=== PATIENT | male | born 1965 | race Caucasian/White ===

== ENCOUNTER 2020-09-20 14:18 | Inpatient (IN) ==
[2020-09-20] MEDS ORDERED: NORMAL SALINE 1,000 ML IV ONE ×2 (16:20→18:34)
--- NOTE | 2020-09-20 16:29 | ERNOTE ---
Back Pain ER HPI Date of Service: 09/20/20 Presenting Symptoms: other - Product diarrhea acute confusional state Time Seen by Provider: 09/20/20 16:08 Source: patient, family Immunizations: IMMUNIZATION HX History of Influenza Vaccine More Information Required Hx Pneumococcal Vaccination More Information Required Allergies/Adverse Reactions: Allergies No Known Allergies Allergy (Verified 09/20/20 15:55) Home Medications: HOME MEDICATIONS Acetaminophen [Tylenol] 1,000 mg PO PRN PRN 07/29/20 [Last Taken Unknown] Lactobacillus rhamnosus GG 10 billion cell capsule 1 cap PO BID 09/20/20 [Last Taken Unknown] cholecalciferol (vitamin D3) 50 mcg (2,000 unit) tablet 2,000 unit PO DAILY 09/20/20 [Last Taken Unknown] diphenoxylate-atropine 2.5 mg-0.025 mg tablet 1 tab PO TID PRN 09/20/20 [Last Taken Unknown] folic acid 1 mg tablet 1 mg PO DAILY 09/20/20 [Last Taken Unknown] pantoprazole 40 mg tablet,delayed release 40 mg PO QAM 09/20/20 [Last Taken Unknown] thiamine HCl (vitamin B1) 100 mg tablet 100 mg PO DAILY 09/20/20 [Last Taken Unknown] Narrative: 55-year-old male emergency room by his father who is here visiting from [place] apparently Deep was at [facility] for 5 weeks for unknown cause was released on September 03 father states since that time so has been going downhill being confused and having chronic diarrhea he is vomited once or twice in the last several weeks Christian that seem to realize what he is doing or where he has had any more and according to his father he was fully functional up until September 03 he also states that his son's appetite has decreased significantly and he has been losing weight Patient had similar situation beginning of the summer was noted his history. that he has a neurostimulator in his spine Before being transferred to [facility] patient had a CAT scan. Emergency room, CAT scan of the brain was unremarkable at the time he had good appetite no abdominal pain no nausea vomiting diarrhea good no abdominal pain nausea vomiting or diarrhea pancreatic pick patient still appears confused Date (Duration): 09/03/20 Time (Timing): 16:25 Timing: Reports: constant Quality/Severity: Reports: moderate Location of pain: Reports: other - Radiates to the upper abdomen Activities at Onset: Reports: none Recent Injury?: Reports: no Modifying Factors - (Improves): Reports: nothing Modifying Factors - (Worsens): Reports: nothing Associated Symptoms: Reports: fever/chills Prior Treament: Reports: recently seen Review of Systems - Review of Systems Constitutional: Present: recent illness - Least 6 weeks ago EYE: Present: no symptoms reported ENT: Present: no symptoms reported Respiratory: Present: no symptoms reported Cardiology: Present: no symptoms reported Gastrointestinal/Abdominal: Present: vomiting, diarrhea, eating less, drinking less Genitourinary: Present: See HPI Musculoskeletal: Present: back pain, neck pain Skin: Present: no symptoms reported Neurological: Present: no symptoms reported Endocrine: Present: no symptoms reported Psych: Present: no symptoms reported Medical History (Last Reviewed 09/20/20 @ 16:27 by John Elizabeth MD) Back pain Chronic pain History of alcohol abuse Hypertension Insomnia Pneumonia Surgical History: Surgical History (Last Reviewed 09/20/20 @ 16:27 by John Elizabeth MD) H/O thumb surgery Previous back surgery Family History: Family History (Last Reviewed 09/20/20 @ 15:55 by Jeniffer Samuels RN) Mother Alive and well Father Alive and well Sister Alive and well Other No pertinent family history Social History: (Last Reviewed 09/20/20 @ 15:55 by Jeniffer Samuels RN) Social History: Marital status: number of children: 1 caregiver/support person: Yes 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/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, 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 parent marital status: unknown current occupational status: unemployed Highest level of school completed/degree received: 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 Service: No Tobacco: Smoking Status: Former smoker Alcohol: alcohol intake: former Substance Use: substance use type: former substance user Dietary Habits: caffeine: Yes Physical Exam - Physical Exam General Appearance: Present: wd/wn, alert, no apparent distress, moderate distress Eye Exam: Normal inspection: bilateral - Eyes sunken, PERRL: bilateral, EOMI: bilateral Ears, Nose, Throat: Present: dry mucous membranes Neck: Present: normal inspection Respiratory: Present: no respiratory distress Cardiovascular/Chest: Present: regular rate, rhythm Gastrointestinal/Abdominal: Present: normal bowel sounds Back Exam: Present: normal inspection Extremity Exam: Present: normal inspection Neurological Exam: Present: alert Progress - Results and Orders Patient's Lab Results:: I have reviewed the patient's lab results. Results and Orders: [id number] [address] NAME: Herman Adame : 1965 MR #: [id number] CC: LOC: ER ADM DATE: DIS DATE: X-RAY REPORT ~[id number] CT/CT Abdomen/Pelvis W/C *~ Exam Date: 09/20/2020 18:02 Ordering Physician: John Elizabeth MD History: Infection. Back pain. Hypertension. Chronic diarrhea. Weakness. Elevated white blood cell count. Technique: Multislice helical acquisition from the lung bases through the ischial tuberosities performed with IV contrast enhancement. Axial and coronal reconstruction images performed. Oral bowel contrast was utilized for the exam. Individualized dose optimization technique was used for the performed procedure including automated exposure control, adjustment of the MA and or KV according to patient size and/or use of iterative reconstruction technique. Comparison: 07/29/2020 Findings: Liver is enlarged measuring 18 cm. Gallbladder appears within normal limits. Adrenal glands appear within normal orbits. There is some atrophy of the pancreas. Spleen appears within normal limits. There are small bilateral pleural effusions right greater than left. There are degenerative changes and postoperative changes to the lumbar spine. There are atherosclerotic calcifications. Kidneys appear within normal limits. Exam shows bowel wall thickening and pericolonic fat stranding involving both the ascending and descending colons and the sigmoid colon. This would be compatible with diffuse colitis and something like ulcerative colitis must be considered. Infectious colitis would also be considered. Would recommend surgical or GI consult for further evaluation. Colonoscopy should be considered. There is no bowel obstruction or free air. IMPRESSION: DIFFUSE NONSPECIFIC COLITIS DISCUSSED. OTHER FINDINGS DISCUSSED Electronically signed by Ricky Saldana M.D.. Ricky Saldana MD Dict: 09/20/20 182 Typed: 09/20/20 1823/ Laboratory Tests 09/20/20 09/20/20 16:34 17:54 Albumin 2.0 L Amylase 7 L Lipase 27 L Laboratory Tests 09/20/20 18:04 SARS-CoV-2 (PCR) Not detected - Vital Signs Patient's Vital Signs:: I have reviewed the patient's vital signs. Vital Signs: Vital Signs 09/20/20 14:34 09/20/20 15:58 Temperature 36.3 C Pulse Rate 142 H 131 H Respiratory Rate 20 19 Blood Pressure 127/92 H 131/95 H O2 Sat by Pulse Oximetry 96 98 Elevated blood pressure and heart temperature within normal - EKG EKG #1 EKG: supraventricular tachycardia EKG read: Interp. by me EKG Comments: EKG sinus tachycardia rate of 131 - CT/Ultrasound CT/Ultrasound Narrative: NAME: Herman Adame : 1965 MR #: [id number] CC: LOC: ER ADM DATE: DIS DATE: X-RAY REPORT ~[id number] CT/CT Chest W/C~ Exam Date: 09/20/2020 18:02 Ordering Physician: John Elizabeth MD History: Infection. Back pain. Hypertension. Chronic diarrhea. Weakness. Elevated white blood cell count. Technique: Multislice helical acquisition from a level above the thoracic inlet through the lung bases to the adrenal glands performed with IV contrast enhancement. Axial and coronal reformatted images performed. Individualized dose optimization technique was used for the performed procedure including automated exposure control, adjustment of the MA and or KV according to patient size and/or use of iterative reconstruction technique. Comparison: 07/29/2020 Findings: There is contrast material within the esophagus. There is a hiatal hernia. There is no significant, by size criteria, mediastinal or hilar lymphadenopathy. There is no pericardial effusion. There are small pleural effusions right greater than left. There is associated compressive atelectasis. There is some dependent atelectasis as well. I see no other significant airspace disease. There are degenerative changes in the thoracic spine. There are neurostimulator devices in the thoracic spine. IMPRESSION: SMALL BILATERAL PLEURAL EFFUSIONS RIGHT GREATER THAN LEFT WITH ASSOCIATED COMPRESSIVE ATELECTASIS. HIATAL HERNIA WITH CONTRAST MATERIAL WITHIN THE ESOPHAGUS. Electronically signed by Ricky Saldana M.D.. Ricky Saldana MD Dict: 09/20/201819 Typed: 09/20/201819/ 09/20/201822 - Progress/Reassessment Chief Complaint: Back Pain Progress:: Improved Plan - Plan Plan: Patient has been diagnosed with colitis intestinal colitis presented her case to Dr. Mesa who is excepted to admit patient pending his Covid status Departure Clinical Impression: Colitis, infectious, Hypokalemia due to excessive gastrointestinal loss of potassium, Chronic diarrhea, Schizophrenia - Departure Disposition: Short Term Hospital Inpatient Condition: Stable
[2020-09-20] MEDS ORDERED: DIATRIZOATE MEGLUMINE, SODIUM 30 ML BTL ONE (16:31)
[2020-09-20] MEDS ORDERED: DIATRIZOATE MEGLUMINE, SODIUM 30 ML BTL PO ONE (16:31)
[2020-09-20 16:44] LABS: Hematocrit 44.6 % (42.0-52.0); Mean Cell Volume 89.4 fl (78-100); Mean Corpuscular Hemoglobin 30.1 pg (27-31); Mean Corpuscular Hgb Conc 33.6 g/dl (32-36); Mean Platelet Volume 8.4 fl (8-11.3); Platelet Count 496 K/mm3 (150-450); Red Blood Count 4.99 M/mm3 (4.7-6.0); Red Cell Distribution Width 14.2 % (11.5-14.0); White Blood Count 34.9 K/mm3 (4.0-10.5)
[2020-09-20 16:46] LABS: Total Cells Counted 100
[2020-09-20 16:57] LABS: Atypical (Reactive) Lymph 5 % (0-2); Band 9 % (0-2.0); Lymphocyte 1 % (20-51); Monocyte 7 % (0-9); Neutrophil 78 % (42-75); Neutrophil # 27.2 K/mm3 (1.3-6.0)
[2020-09-20 16:58] LABS: Platelet Estimate Increased (NORMAL)
[2020-09-20 17:02] LABS: BUN/Creatinine Ratio 7.6 (9.0-21.6); Blood Urea Nitrogen 10 mg/dL (6-23); Glucose * 198 mg/dL (70-110); Sodium 133 mmol/L (132-142)
[2020-09-20 17:03] LABS: ALT 16 U/L (19-67); AST 12 U/L (0-48); Alkaline Phosphatase * 76 U/L (50-170); Anion Gap 11.5 mmol/L (6.8-13.8); BNP * 193 pg/mL (5-140); Bilirubin, Total 0.7 mg/dL (0.0-1.1); Ca. Corrected For Albumin 9.3 mg/dL (8.4-10.2); Carbon Dioxide 28.1 mmol/L (24-32.6); Chloride 96 mmol/L (97-106); Lipase 27 U/L (73-393); Potassium 2.6 mmol/L (3.4-4.6); Total Protein 5.1 gm/dL (6.2-8.2); Troponin I Less than 0.017 ng/mL (0.00-0.10)
[2020-09-20 18:04] LABS: Amylase * 7 U/L (25-115); Lipase 27 U/L (73-393)
[2020-09-20] MEDS: POTASSIUM CHLORIDE IN WATER 100 ML IV SCH ×4 (18:25→21:40)
[2020-09-20] MEDS ORDERED: metroNIDAZOLE/SODIUM CHLORIDE 500 MG/100 ML BAG IV ONE (18:40)
[2020-09-20] MEDS ORDERED: LEVOFLOXACIN IN DEXTROSE 5 % 500 MG/100 ML BAG IV SCH (18:45)
[2020-09-20] MEDS: POTASSIUM CHLORIDE 20 MEQ in NORMAL SALINE 1,000 ML IV SCH (22:44)
[2020-09-21 03:19] LABS: Urine Bilirubin Negative (NEGATIVE); Urine Blood Negative /ul (NEGATIVE); Urine Ketone 5 mg/dL (NEGATIVE); Urine Nitrite Negative (NEGATIVE); Urine Protein Negative (NEGATIVE); Urine Specific Gravity 1.015 SP.GR. (1.005-1.030); Urine Urobilinogen Normal (NORMAL); Urine pH 6.5 pH (5.0-7.0)
[2020-09-21 03:30] LABS: Urine Appearance Clear (CLEAR); Urine Bacteria None Seen; Urine Color Dark Yellow; Urine RBC None Seen /hpf (0-5); Urine WBC 0-5 /hpf (0-5)
[2020-09-21 03:36] LABS: Cocaine Ur Negative (NEGATIVE); Urine Barbiturate Negative (NEGATIVE); Urine Benzodiazepines Negative (NEGATIVE); Urine PCP Negative (NEGATIVE); Urine THC Negative (NEGATIVE)
[2020-09-21 03:44] LABS: Urine Opiates Positive (NEGATIVE)
[2020-09-21 06:43] LABS: Hematocrit 35.8 % (42.0-52.0); Hemoglobin 12.1 gm/dL (13.5-18.0); Mean Cell Volume 88.8 fl (78-100); Mean Corpuscular Hgb Conc 33.8 g/dl (32-36); Mean Platelet Volume 8.6 fl (8-11.3); Platelet Count 352 K/mm3 (150-450); Red Blood Count 4.03 M/mm3 (4.7-6.0); Red Cell Distribution Width 13.8 % (11.5-14.0)
[2020-09-21 06:49] LABS: Total Cells Counted 100
[2020-09-21 06:51] LABS: Bacteria Few; Lymphocyte 10 % (20-51); Neutrophil 90 % (42-75); White Blood Count Many; Yeast None Seen
[2020-09-21 06:59] LABS: Albumin * 1.6 gm/dl (3.4-5.0); Anion Gap 10.6 mmol/L (6.8-13.8); BUN/Creatinine Ratio 8.2 (9.0-21.6); Bilirubin, Total 0.5 mg/dL (0.0-1.1); Ca. Corrected For Albumin 8.8 mg/dL (8.4-10.2); Calcium * 7.2 mg/dL (7.9-10.9); Carbon Dioxide 24.1 mmol/L (24-32.6); Potassium 2.7 mmol/L (3.4-4.6); Total Protein 3.8 gm/dL (6.2-8.2)
[2020-09-21 07:07] LABS: CRP 23.3 mg/dL (0.0-0.9)
[2020-09-21] MEDS: POTASSIUM CHLORIDE 20 MEQ in NORMAL SALINE 1,000 ML IV SCH ×2 (07:09→15:11)
[2020-09-21 07:33] LABS: Atypical (Reactive) Lymph 3 % (0-2); Band 7 % (0-2.0); Lymphocyte 5 % (20-51); Monocyte 2 % (0-9); Neutrophil 83 % (42-75); Neutrophil # 23.2 K/mm3 (1.3-6.0); Platelet Estimate Normal (NORMAL); RBC Morphology Normal (NORMAL)
--- NOTE | 2020-09-21 08:01 | HP ---
Chief Complaint - Chief Complaint Date of Service: 09/21/20 Time of Service: 07:49 Chief Complaint: Weakness, diarrhea History of Present Illness: Herman Adame is a 55-year-old male who presented to the emergency room with intractable diarrhea and weakness. He was discovered to have a low potassium at 2.6. He was having some abdominal discomfort. Apparently he has a history of pancreatitis but his amylase and lipase were both normal here. He was started on Flagyl and Levaquin in the emergency room. His C. difficile screen has come back positive. He received several bags of K rider and I placed him on normal saline with 20 of potassium in his IV at 125 cc/h through the night. His potassium this morning is only 2.7. He appears well-hydrated. His kidney studies are normal now. His platelets were elevated on admission but are normal today. His white count was markedly elevated 35,000 on admission and is 28,000 this morning with a predominance of leukocytes. Stool is positive for leukocytes most of which are neutrophils. CT of the abdomen shows diffuse nonspecific colitis findings. In this case it is almost certainly from an infectious etiology. He had been at [facility] in [place] for an extended period for treatment of his schizophrenia and probably had antibiotics during that time causing the C. difficile overgrowth. The rest of his electrolytes appear normal this morning. His kidney function is normal with EGFR of 85. His liver function studies are normal. He is low in protein and albumin. Medical History (Last Reviewed 09/20/20 @ 20:58 by Tammie Corona RN) Back pain Chronic pain History of alcohol abuse Hypertension Insomnia Pneumonia Surgical History: Surgical History (Last Reviewed 09/20/20 @ 20:58 by Tammie Corona RN) H/O thumb surgery Previous back surgery Family History: Family History (Last Reviewed 09/20/20 @ 20:58 by Tammie Corona RN) Mother Alive and well Father Alive and well Sister Alive and well Other No pertinent family history Social History: (Last Reviewed 09/20/20 @ 20:58 by Tammie Corona RN) Social History: Marital status: number of children: 1 caregiver/support person: Yes caregiver/support person comment: Filter [employer] Hel[employer], friends parent marital status: unknown current occupational status: unemployed Highest level of school completed/degree received: 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 Service: No Tobacco: Smoking Status: Former smoker Alcohol: alcohol intake: former Substance Use: substance use type: former substance user Dietary Habits: caffeine: Yes Review Of Systems (GEN) - Review of Systems Generalized/Overall Review: Present: Weakness, Malaise EENTM: Present: No Symptoms Reported Respiratory: Present: No Symptoms Reported Cardiac: Present: No Symptoms Reported Abdominal: Present: Abdominal Pain, Diarrhea - C. difficile screen is positive Genitourinary: Present: No Symptoms Reported Musculoskeletal: Present: No Symptoms Reported Neurological: Present: No Symptoms Reported Skin: Present: No Symptoms Reported Endocrine: Present: No Symptoms Reported Immunizations: IMMUNIZATION HX History of Influenza Vaccine More Information Required Hx Pneumococcal Vaccination More Information Required Allergies/Adverse Reactions: Allergies Allergy/AdvReac Type Severity Reaction Status Date / Time No Known Allergies Allergy Verified 09/20/20 15:55 Home Medications: HOME MEDICATIONS Acetaminophen [Tylenol] 1,000 mg PO PRN PRN 07/29/20 [Last Taken Unknown] Acetaminophen [Tylenol] 1,000 mg PO Q6H PRN 09/20/20 [Last Taken Unknown] Amlodipine Besylate 2.5 mg PO DAILY 09/20/20 [Last Taken 09/20/20] Cholecalciferol [Vitamin D] 2,000 unit PO DAILY 09/20/20 [Last Taken 09/20/20] Doxepin HCl [Sinequan] 10 mg PO HS 09/20/20 [Last Taken 09/19/20] Lactobacillus rhamnosus GG 10 billion cell capsule 1 cap PO BID 09/20/20 [Last Taken Unknown] Lisinopril [Zestril] 40 mg PO DAILY 09/20/20 [Last Taken 09/20/20] Metoprolol Succinate 50 mg PO DAILY 09/20/20 [Last Taken 09/20/20] Cuvdt-Zzghrfb-Gaavhynt Tablet 1 cap PO DAILY 09/20/20 [Last Taken 09/20/20] folic acid 1 mg tablet 1 mg PO DAILY 09/20/20 [Last Taken 09/20/20] pantoprazole 40 mg tablet,delayed release 40 mg PO QAM 09/20/20 [Last Taken 09/20/20] thiamine HCl (vitamin B1) 100 mg tablet 100 mg PO DAILY 09/20/20 [Last Taken 09/20/20] Exam - Exam Vital Signs: Vital Signs - Last Taken Temp 37.3 C 09/21/20 06:00 Pulse 133 H 09/21/20 06:00 Resp 16 09/21/20 06:00 BP 134/81 09/21/20 06:00 Pulse Ox 97 09/21/20 06:00 Constitutional: Present: Alert, Oriented x3, Cooperative, Well developed, Well nourished, No distress ENT Exam: Present: normal ENT inspection, hearing grossly normal, pharynx normal, TMs normal Eye Exam: bilateral eye: normal inspection, PERRL, EOMI Neck: Present: non-tender, full range of motion, supple, normal inspection, trachea midline Back Exam: Present: normal inspection, no CVA tenderness, no vertebral tenderness Breasts: Present: Exam deferred Respiratory: Present: chest non-tender, lungs clear, normal breath sounds, no respiratory distress Cardiovascular/Chest: Present: normal peripheral pulses, tachycardia Peripheral Pulses: carotid (R): 2+, carotid (L): 2+, radial (R): 2+, radial (L): 2+ Abdomen: Present: soft, nondistended, no rebound tenderness, no hepatospenomegaly, no masses, tender, other - Hyperactive bowel sounds /Rectal: Present: Exam deferred Extremity: Present: normal range of motion, non-tender, normal inspection, no pedal edema, no calf tenderness, normal capillary refill Skin Exam: Present: normal color, warm/dry, no cyanosis Lymphatic: Present: no adenopathy 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: 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 as tested, normal cerebellar test, no motor/sensory deficits, alert, normal mood/affect, oriented x 3 Appearance: Present: appropriate appearance, appropriate insight, neat, no memory impairment Eye contact: Present: cooperative, good eye contact, normal speech Thoughts: Present: normal thought pattern, no apparent hallucination Diagnostic Studies: Abnormal Lab Results 09/20/20 09/20/20 09/20/20 Range/Units 16:34 16:34 16:34 WBC 34.9 H (4.0-10.5) K/mm3 RBC (4.7-6.0) M/mm3 Hgb (13.5-18.0) gm/dL Hct (42.0-52.0) % RDW 14.2 H (11.5-14.0) % Plt Count 496 H (150-450) K/mm3 Neutrophils % (Manual) 78 H (42-75) % Band Neuts % (Manual) 9 H (0-2.0) % Lymphocytes % (Manual) 1 L (20-51) % Neutrophils # (Manual) 27.2 H (1.3-6.0) K/mm3 Lymphocytes # (Manual) 0.3 L (1.5-3.5) k/mm3 Monocytes # (Manual) 2.4 H (0.0-1.0) k/mm3 Atypic/Reactive Lymphs 5 H (0-2) % Platelet Estimate Increased H (NORMAL) Potassium 2.6 L D (3.4-4.6) mmol/L Chloride 96 L (97-106) mmol/L BUN/Creatinine Ratio 7.6 L (9.0-21.6) Random Glucose 198 H (70-110) mg/dL Lactic Acid, Venous 3.4 H* (0.4-2.0) mmol/L Calcium (7.9-10.9) mg/dL ALT 16 L (19-67) U/L C-Reactive Prot, Quant (0.0-0.9) mg/dL B-Natriuretic Peptide 193 H (5-140) pg/mL Total Protein 5.1 L (6.2-8.2) gm/dL Albumin 2.0 L (3.4-5.0) gm/dl Amylase (25-115) U/L Lipase 27 L (73-393) U/L Fluid Lymphocytes (20-51) % Stool Neutrophil # (42-75) % Stool Leukocytes, Qual Stl C.difficile Tox A&B (Negative) Urine Opiates Screen (NEGATIVE) 09/20/20 09/21/20 09/21/20 Range/Units 17:54 03:13 05:25 WBC (4.0-10.5) K/mm3 RBC (4.7-6.0) M/mm3 Hgb (13.5-18.0) gm/dL Hct (42.0-52.0) % RDW (11.5-14.0) % Plt Count (150-450) K/mm3 Neutrophils % (Manual) (42-75) % Band Neuts % (Manual) (0-2.0) % Lymphocytes % (Manual) (20-51) % Neutrophils # (Manual) (1.3-6.0) K/mm3 Lymphocytes # (Manual) (1.5-3.5) k/mm3 Monocytes # (Manual) (0.0-1.0) k/mm3 Atypic/Reactive Lymphs (0-2) % Platelet Estimate (NORMAL) Potassium (3.4-4.6) mmol/L Chloride (97-106) mmol/L BUN/Creatinine Ratio (9.0-21.6) Random Glucose (70-110) mg/dL Lactic Acid, Venous (0.4-2.0) mmol/L Calcium (7.9-10.9) mg/dL ALT (19-67) U/L C-Reactive Prot, Quant (0.0-0.9) mg/dL B-Natriuretic Peptide (5-140) pg/mL Total Protein (6.2-8.2) gm/dL Albumin (3.4-5.0) gm/dl Amylase 7 L (25-115) U/L Lipase 27 L (73-393) U/L Fluid Lymphocytes 10 L (20-51) % Stool Neutrophil # 90 H (42-75) % Stool Leukocytes, Qual Many H Stl C.difficile Tox A&B (Negative) Urine Opiates Screen Positive H (NEGATIVE) 09/21/20 09/21/20 09/21/20 Range/Units 05:25 06:40 06:40 WBC 28.0 H (4.0-10.5) K/mm3 RBC 4.03 L (4.7-6.0) M/mm3 Hgb 12.1 L (13.5-18.0) gm/dL Hct 35.8 L (42.0-52.0) % RDW (11.5-14.0) % Plt Count (150-450) K/mm3 Neutrophils % (Manual) 83 H (42-75) % Band Neuts % (Manual) 7 H (0-2.0) % Lymphocytes % (Manual) 5 L (20-51) % Neutrophils # (Manual) 23.2 H (1.3-6.0) K/mm3 Lymphocytes # (Manual) 1.4 L (1.5-3.5) k/mm3 Monocytes # (Manual) (0.0-1.0) k/mm3 Atypic/Reactive Lymphs 3 H (0-2) % Platelet Estimate (NORMAL) Potassium 2.7 L (3.4-4.6) mmol/L Chloride (97-106) mmol/L BUN/Creatinine Ratio 8.2 L (9.0-21.6) Random Glucose 112 H D (70-110) mg/dL Lactic Acid, Venous (0.4-2.0) mmol/L Calcium 7.2 L (7.9-10.9) mg/dL ALT 15 L (19-67) U/L C-Reactive Prot, Quant 23.3 H (0.0-0.9) mg/dL B-Natriuretic Peptide (5-140) pg/mL Total Protein 3.8 L (6.2-8.2) gm/dL Albumin 1.6 L (3.4-5.0) gm/dl Amylase (25-115) U/L Lipase (73-393) U/L Fluid Lymphocytes (20-51) % Stool Neutrophil # (42-75) % Stool Leukocytes, Qual Stl C.difficile Tox A&B Positive H (Negative) Urine Opiates Screen (NEGATIVE) Laboratory Results WBC 28.0 K/mm3 (4.0-10.5) H 09/21/20 06:40 RBC 4.03 M/mm3 (4.7-6.0) L 09/21/20 06:40 Hgb 12.1 gm/dL (13.5-18.0) L 09/21/20 06:40 Hct 35.8 % (42.0-52.0) L 09/21/20 06:40 MCV 88.8 fl (78-100) 09/21/20 06:40 MCH 30.0 pg (27-31) 09/21/20 06:40 MCHC 33.8 g/dl (32-36) 09/21/20 06:40 RDW 13.8 % (11.5-14.0) 09/21/20 06:40 Plt Count 352 K/mm3 (150-450) 09/21/20 06:40 MPV 8.6 fl (8-11.3) 09/21/20 06:40 Neutrophils % (Manual) 83 % (42-75) H 09/21/20 06:40 Band Neuts % (Manual) 7 % (0-2.0) H 09/21/20 06:40 Lymphocytes % (Manual) 5 % (20-51) L 09/21/20 06:40 Monocytes % (Manual) 2 % (0-9) 09/21/20 06:40 Neutrophils # (Manual) 23.2 K/mm3 (1.3-6.0) H 09/21/20 06:40 Lymphocytes # (Manual) 1.4 k/mm3 (1.5-3.5) L 09/21/20 06:40 Monocytes # (Manual) 0.6 k/mm3 (0.0-1.0) 09/21/20 06:40 Atypic/Reactive Lymphs 3 % (0-2) H 09/21/20 06:40 Platelet Estimate Normal (NORMAL) 09/21/20 06:40 RBC Morphology Normal (NORMAL) 09/21/20 06:40 ESR 8 mm/hr (0-10) 09/21/20 06:40 Sodium 132 mmol/L (132-142) 09/21/20 06:40 Plasma Sodium 132 mmol/L (130-142) 09/21/20 06:40 Potassium 2.7 mmol/L (3.4-4.6) L 09/21/20 06:40 Chloride 100 mmol/L (97-106) 09/21/20 06:40 Carbon Dioxide 24.1 mmol/L (24-32.6) 09/21/20 06:40 Anion Gap 10.6 mmol/L (6.8-13.8) 09/21/20 06:40 BUN 8 mg/dL (6-23) 09/21/20 06:40 Creatinine 0.98 mg/dL (0.4-1.4) 09/21/20 06:40 Est GFR (Non-Af Amer) 85 mL/min (60-130) D 09/21/20 06:40 BUN/Creatinine Ratio 8.2 (9.0-21.6) L 09/21/20 06:40 Random Glucose 112 mg/dL (70-110) H D 09/21/20 06:40 Lactic Acid, Venous 1.9 mmol/L (0.4-2.0) 09/20/20 19:45 Calcium 7.2 mg/dL (7.9-10.9) L 09/21/20 06:40 Calcium Adj for Albumin 8.8 mg/dL (8.4-10.2) 09/21/20 06:40 Total Bilirubin 0.5 mg/dL (0.0-1.1) 09/21/20 06:40 AST 13 U/L (0-48) 09/21/20 06:40 ALT 15 U/L (19-67) L 09/21/20 06:40 Alkaline Phosphatase 61 U/L (50-170) 09/21/20 06:40 Troponin I Less than 0.017 ng/mL (0.00-0.10) 09/20/20 16:34 C-Reactive Prot, Quant 23.3 mg/dL (0.0-0.9) H 09/21/20 06:40 B-Natriuretic Peptide 193 pg/mL (5-140) H 09/20/20 16:34 Total Protein 3.8 gm/dL (6.2-8.2) L 09/21/20 06:40 Albumin 1.6 gm/dl (3.4-5.0) L 09/21/20 06:40 Amylase 7 U/L (25-115) L 09/20/20 17:54 Lipase 27 U/L (73-393) L 09/20/20 17:54 Urine Color Dark yellow 09/21/20 03:13 Urine Appearance Clear (CLEAR) 09/21/20 03:13 Urine pH 6.5 pH (5.0-7.0) 09/21/20 03:13 Ur Specific [place] 1.015 SP.GR. (1.005-1.030) 09/21/20 03:13 Urine Protein Negative mg/dL (NEGATIVE) 09/21/20 03:13 Urine Glucose (UA) Negative mg/dL (NEGATIVE) 09/21/20 03:13 Urine Ketones 5 mg/dL (NEGATIVE) 09/21/20 03:13 Urine Blood Negative /ul (NEGATIVE) 09/21/20 03:13 Urine Nitrate Negative (NEGATIVE) 09/21/20 03:13 Urine Bilirubin Negative mg/dl (NEGATIVE) 09/21/20 03:13 Urine Urobilinogen Normal EU/dl (NORMAL) 09/21/20 03:13 Ur Leukocyte Esterase Negative /ul (NEGATIVE) 09/21/20 03:13 Urine RBC None seen /hpf (0-5) 09/21/20 03:13 Urine WBC 0-5 /hpf (0-5) 09/21/20 03:13 Ur Epithelial Cells None seen /hpf (0-5) 09/21/20 03:13 Urine Bacteria None seen (NONE) 09/21/20 03:13 Urine Culture Comments No culture indicated 09/21/20 03:13 Fluid Lymphocytes 10 % (20-51) L 09/21/20 05:25 Stool White Cell Res 4 Few 09/21/20 05:25 Stool Neutrophil # 90 % (42-75) H 09/21/20 05:25 Stool Leukocytes, Qual Many H 09/21/20 05:25 Stl C.difficile Tox A&B Positive (Negative) H 09/21/20 05:25 Urine Opiates Screen Positive (NEGATIVE) H 09/21/20 03:13 Barbiturate Screen Negative (NEGATIVE) 09/21/20 03:13 Ur Phencyclidine Scrn Negative (NEGATIVE) 09/21/20 03:13 Urine Amphetamine Negative (NEGATIVE) 09/21/20 03:13 U Benzodiazepines Scrn Negative (NEGATIVE) 09/21/20 03:13 Urine Cocaine Screen Negative (NEGATIVE) 09/21/20 03:13 Urine Marijuana (THC) Negative (NEGATIVE) 09/21/20 03:13 SARS-CoV-2 (PCR) Not detected (NotDetected) 09/20/20 18:04 Yeast (Wet Prep) None seen 09/21/20 05:25 Assessment/Plan - Narrative Narrative: 1. Continue IV fluids with potassium replacement 2. Continue metronidazole and levofloxacin p.o. 3. Recheck lab again tomorrow morning 4. Twelve-lead EKG - Assessment/Plan (1) C. difficile colitis Problem: Acute (2) Colitis, infectious Problem: Acute (3) Hypokalemia due to excessive gastrointestinal loss of potassium Problem: Acute (4) Schizophrenia Problem: Chronic Qualifiers: Schizophrenia type: unspecified Qualified Code(s): F20.9 - Schizophrenia, unspecified
--- NOTE | 2020-09-21 08:15 | PN ---
Subjective - Date and Time Seen Date: 09/21/20 Time: 07:50 Subjective Narrative: Mr. Adame is a 55-year-old male admitted for C. difficile colitis and hypokalemia. His general malaise. Has some abdominal tenderness but no pain per se. His treatment with Flagyl metronidazole and IV potassium is in place. He is feeling quite a bit better this morning following some rehydration that he has had through the night. Objective - Review of Systems Generalized/Overall Review: Reports: Weakness, Malaise EENTM: Reports: No Symptoms Reported Respiratory: Reports: No Symptoms Reported Cardiac: Reports: No Symptoms Reported Abdominal: Reports: Abdominal Pain, Diarrhea Genitourinary Symptoms: Reports: No Symptoms Reported Musculoskeletal Complaints: Reports: No Symptoms Reported Neurological: Reports: No Symptoms Reported Skin: Reports: No Symptoms Reported Endocrine: Reports: No Symptoms Reported Misc: All systems neg except as marked - Vitals Vitals: Last Vital Signs Temp 37.3 C 09/21/20 06:00 Pulse 133 H 09/21/20 06:00 Resp 16 09/21/20 06:00 BP 134/81 09/21/20 06:00 Pulse Ox 97 09/21/20 06:00 - Abnormal Lab Findings Abnormal Lab Findings: Abnormal Lab Results 09/20/20 09/20/20 09/20/20 Range/Units 16:34 16:34 16:34 WBC 34.9 H (4.0-10.5) K/mm3 RBC (4.7-6.0) M/mm3 Hgb (13.5-18.0) gm/dL Hct (42.0-52.0) % RDW 14.2 H (11.5-14.0) % Plt Count 496 H (150-450) K/mm3 Neutrophils % (Manual) 78 H (42-75) % Band Neuts % (Manual) 9 H (0-2.0) % Lymphocytes % (Manual) 1 L (20-51) % Neutrophils # (Manual) 27.2 H (1.3-6.0) K/mm3 Lymphocytes # (Manual) 0.3 L (1.5-3.5) k/mm3 Monocytes # (Manual) 2.4 H (0.0-1.0) k/mm3 Atypic/Reactive Lymphs 5 H (0-2) % Platelet Estimate Increased H (NORMAL) Potassium 2.6 L D (3.4-4.6) mmol/L Chloride 96 L (97-106) mmol/L BUN/Creatinine Ratio 7.6 L (9.0-21.6) Random Glucose 198 H (70-110) mg/dL Lactic Acid, Venous 3.4 H* (0.4-2.0) mmol/L Calcium (7.9-10.9) mg/dL ALT 16 L (19-67) U/L C-Reactive Prot, Quant (0.0-0.9) mg/dL B-Natriuretic Peptide 193 H (5-140) pg/mL Total Protein 5.1 L (6.2-8.2) gm/dL Albumin 2.0 L (3.4-5.0) gm/dl Amylase (25-115) U/L Lipase 27 L (73-393) U/L Fluid Lymphocytes (20-51) % Stool Neutrophil # (42-75) % Stool Leukocytes, Qual Stl C.difficile Tox A&B (Negative) Urine Opiates Screen (NEGATIVE) 09/20/20 09/21/20 09/21/20 Range/Units 17:54 03:13 05:25 WBC (4.0-10.5) K/mm3 RBC (4.7-6.0) M/mm3 Hgb (13.5-18.0) gm/dL Hct (42.0-52.0) % RDW (11.5-14.0) % Plt Count (150-450) K/mm3 Neutrophils % (Manual) (42-75) % Band Neuts % (Manual) (0-2.0) % Lymphocytes % (Manual) (20-51) % Neutrophils # (Manual) (1.3-6.0) K/mm3 Lymphocytes # (Manual) (1.5-3.5) k/mm3 Monocytes # (Manual) (0.0-1.0) k/mm3 Atypic/Reactive Lymphs (0-2) % Platelet Estimate (NORMAL) Potassium (3.4-4.6) mmol/L Chloride (97-106) mmol/L BUN/Creatinine Ratio (9.0-21.6) Random Glucose (70-110) mg/dL Lactic Acid, Venous (0.4-2.0) mmol/L Calcium (7.9-10.9) mg/dL ALT (19-67) U/L C-Reactive Prot, Quant (0.0-0.9) mg/dL B-Natriuretic Peptide (5-140) pg/mL Total Protein (6.2-8.2) gm/dL Albumin (3.4-5.0) gm/dl Amylase 7 L (25-115) U/L Lipase 27 L (73-393) U/L Fluid Lymphocytes 10 L (20-51) % Stool Neutrophil # 90 H (42-75) % Stool Leukocytes, Qual Many H Stl C.difficile Tox A&B (Negative) Urine Opiates Screen Positive H (NEGATIVE) 09/21/20 09/21/20 09/21/20 Range/Units 05:25 06:40 06:40 WBC 28.0 H (4.0-10.5) K/mm3 RBC 4.03 L (4.7-6.0) M/mm3 Hgb 12.1 L (13.5-18.0) gm/dL Hct 35.8 L (42.0-52.0) % RDW (11.5-14.0) % Plt Count (150-450) K/mm3 Neutrophils % (Manual) 83 H (42-75) % Band Neuts % (Manual) 7 H (0-2.0) % Lymphocytes % (Manual) 5 L (20-51) % Neutrophils # (Manual) 23.2 H (1.3-6.0) K/mm3 Lymphocytes # (Manual) 1.4 L (1.5-3.5) k/mm3 Monocytes # (Manual) (0.0-1.0) k/mm3 Atypic/Reactive Lymphs 3 H (0-2) % Platelet Estimate (NORMAL) Potassium 2.7 L (3.4-4.6) mmol/L Chloride (97-106) mmol/L BUN/Creatinine Ratio 8.2 L (9.0-21.6) Random Glucose 112 H D (70-110) mg/dL Lactic Acid, Venous (0.4-2.0) mmol/L Calcium 7.2 L (7.9-10.9) mg/dL ALT 15 L (19-67) U/L C-Reactive Prot, Quant 23.3 H (0.0-0.9) mg/dL B-Natriuretic Peptide (5-140) pg/mL Total Protein 3.8 L (6.2-8.2) gm/dL Albumin 1.6 L (3.4-5.0) gm/dl Amylase (25-115) U/L Lipase (73-393) U/L Fluid Lymphocytes (20-51) % Stool Neutrophil # (42-75) % Stool Leukocytes, Qual Stl C.difficile Tox A&B Positive H (Negative) Urine Opiates Screen (NEGATIVE) - EKG/Xray Findings EKG read: Reviewed by me Interpretation: Reviewed by me - Exam Constitutional: Present: Alert, Oriented x3, Cooperative, Well developed, Well nourished, No distress ENT Exam: Present: normal ENT inspection, hearing grossly normal, pharynx normal, TMs normal Neck: Present: non-tender, full range of motion, supple, normal inspection, trachea midline Breasts: Present: Exam deferred Respiratory: Present: chest non-tender, lungs clear, normal breath sounds, no respiratory distress, no accessory muscle use Cardiovascular/Chest: Present: tachycardia Abdomen: Present: soft, nondistended, no rebound tenderness, no hepatospenomegaly, no masses, tender, other - Increased bowel sounds /Rectal: Present: Exam deferred Extremity: Present: normal range of motion, non-tender, normal inspection, no pedal edema, no calf tenderness, normal capillary refill Skin Exam: Present: normal color, warm/dry, no cyanosis Lymphatic: Present: no adenopathy 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: 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 Continue IV fluids with potassium 2. Continue metronidazole and levofloxacin p.o. 3. Repeat lab again tomorrow morning - Problems/Diagnosis (1) C. difficile colitis Problem: Acute (2) Colitis, infectious Problem: Acute (3) Hypokalemia due to excessive gastrointestinal loss of potassium Problem: Acute (4) Schizophrenia Problem: Chronic Qualifiers: Schizophrenia type: unspecified Qualified Code(s): F20.9 - Schizophrenia, unspecified
[2020-09-21] MEDS ORDERED: ACETAMINOPHEN 500 MG TABLET PO PRN (08:19)
[2020-09-21] MEDS ORDERED: POTASSIUM CHLORIDE 10 MEQ TABLET.SA PO ONE (08:21)
[2020-09-21] MEDS: LACTOBACILLUS ACIDOPHILUS 1 EACH CAPSULE PO SCH ×2 (09:12→20:23)
[2020-09-21] MEDS: THIAMINE HCL 100 MG TABLET PO SCH (09:12)
[2020-09-21] MEDS: METOPROLOL SUCCINATE 50 MG TABLET.SA PO SCH (09:12)
[2020-09-21] MEDS: FOLIC ACID 1 MG TABLET PO SCH (09:12)
[2020-09-21] MEDS: PANTOPRAZOLE SODIUM 40 MG TABLET.EC PO SCH (09:12)
[2020-09-21] MEDS: amLODIPine BESYLATE 5 MG TABLET PO SCH (09:13)
[2020-09-21] MEDS: LISINOPRIL 40 MG TABLET PO SCH (09:15)
[2020-09-21] MEDS: metroNIDAZOLE 500 MG TABLET PO SCH ×2 (10:40→18:42)
[2020-09-21] MEDS: LEVOFLOXACIN 500 MG TABLET PO SCH (10:40)
[2020-09-21] MEDS ORDERED: LEVOFLOXACIN 750 MG TABLET PO SCH (11:00)
[2020-09-21] MEDS ORDERED: NORMAL SALINE 1,000 ML IV ONE ×3 (16:58→18:49)
[2020-09-21] MEDS ORDERED: LEVOFLOXACIN IN DEXTROSE 5 % 500 MG/100 ML BAG IV SCH (18:45)
[2020-09-21] MEDS: DOXEPIN HCL 10 MG CAPSULE PO SCH (20:23)
[2020-09-22] MEDS: metroNIDAZOLE 500 MG TABLET PO SCH ×3 (03:03→17:33)
[2020-09-22] MEDS: PANTOPRAZOLE SODIUM 40 MG TABLET.EC PO SCH (06:30)
[2020-09-22] MEDS: amLODIPine BESYLATE 5 MG TABLET PO SCH (08:18)
[2020-09-22] MEDS: LISINOPRIL 40 MG TABLET PO SCH (08:19)
[2020-09-22] MEDS: THIAMINE HCL 100 MG TABLET PO SCH (08:19)
[2020-09-22] MEDS: METOPROLOL SUCCINATE 50 MG TABLET.SA PO SCH (08:19)
[2020-09-22] MEDS: FOLIC ACID 1 MG TABLET PO SCH (08:20)
[2020-09-22] MEDS: LACTOBACILLUS ACIDOPHILUS 1 EACH CAPSULE PO SCH ×2 (08:20→20:22)
[2020-09-22] MEDS: LEVOFLOXACIN 500 MG TABLET PO SCH (10:10)
[2020-09-22 11:05] LABS: Hematocrit 33.7 % (42.0-52.0); Hemoglobin 11.5 gm/dL (13.5-18.0); Mean Cell Volume 88.9 fl (78-100); Mean Corpuscular Hemoglobin 30.3 pg (27-31); Mean Corpuscular Hgb Conc 34.1 g/dl (32-36); Mean Platelet Volume 8.1 fl (8-11.3); Platelet Count 392 K/mm3 (150-450); Red Blood Count 3.79 M/mm3 (4.7-6.0); Red Cell Distribution Width 14.2 % (11.5-14.0); White Blood Count 13.6 K/mm3 (4.0-10.5)
[2020-09-22 11:07] LABS: Total Cells Counted 100
[2020-09-22 11:17] LABS: Albumin * 1.3 gm/dl (3.4-5.0); Anion Gap 10.1 mmol/L (6.8-13.8); BUN/Creatinine Ratio 5.3 (9.0-21.6); Bilirubin, Total 0.2 mg/dL (0.0-1.1); Ca. Corrected For Albumin 8.9 mg/dL (8.4-10.2); Calcium * 7.1 mg/dL (7.9-10.9); Carbon Dioxide 23.5 mmol/L (24-32.6); Potassium 2.6 mmol/L (3.4-4.6); Total Protein 3.6 gm/dL (6.2-8.2)
[2020-09-22 11:20] LABS: Band 2 % (0-2.0); Eosinophil 4 % (0-3); Lymphocyte 10 % (20-51); Monocyte 4 % (0-9); Neutrophil 80 % (42-75); Neutrophil # 10.9 K/mm3 (1.3-6.0); Platelet Estimate Normal (NORMAL); RBC Morphology Normal (NORMAL)
--- NOTE | 2020-09-22 12:23 | PN ---
Subjective - Date and Time Seen Date: 09/22/20 Time: 10:00 Subjective Narrative: Mr. Adame is an uneventful night. He had some hypotension yesterday and he received 2 L of normal saline which is corrected his blood pressure. Unfortunately his potassium remains low at 2.6. The diarrhea has slowed and he says is quite a bit better. His white count has dropped from 28,000 yesterday to 13,600 today. Hemoglobin is 11.5 g and hematocrit is 33.7%. The other electrolytes are normal. He will need to stay another day since he does not meet discharge criteria because of his low potassium. Objective - Review of Systems Generalized/Overall Review: Reports: No Symptoms Reported, Weakness EENTM: Reports: No Symptoms Reported Respiratory: Reports: No Symptoms Reported Cardiac: Reports: No Symptoms Reported Abdominal: Reports: Abdominal Pain, Diarrhea Genitourinary Symptoms: Reports: No Symptoms Reported Musculoskeletal Complaints: Reports: No Symptoms Reported Neurological: Reports: No Symptoms Reported Skin: Reports: No Symptoms Reported Endocrine: Reports: No Symptoms Reported - Vitals Vitals: Last Vital Signs Temp 36.8 C 09/22/20 08:29 Pulse 100 09/22/20 08:29 Resp 20 09/22/20 08:29 BP 104/64 09/22/20 08:29 Pulse Ox 93 09/22/20 08:29 - Abnormal Lab Findings Abnormal Lab Findings: Abnormal Lab Results 09/22/20 09/22/20 Range/Units 10:46 10:46 WBC 13.6 H D (4.0-10.5) K/mm3 RBC 3.79 L (4.7-6.0) M/mm3 Hgb 11.5 L (13.5-18.0) gm/dL Hct 33.7 L (42.0-52.0) % RDW 14.2 H (11.5-14.0) % Neutrophils % (Manual) 80 H (42-75) % Lymphocytes % (Manual) 10 L (20-51) % Eosinophils % (Manual) 4 H (0-3) % Neutrophils # (Manual) 10.9 H (1.3-6.0) K/mm3 Lymphocytes # (Manual) 1.4 L (1.5-3.5) k/mm3 Potassium 2.6 L (3.4-4.6) mmol/L Chloride 107 H (97-106) mmol/L Carbon Dioxide 23.5 L (24-32.6) mmol/L BUN 4 L (6-23) mg/dL BUN/Creatinine Ratio 5.3 L (9.0-21.6) Calcium 7.1 L (7.9-10.9) mg/dL ALT 11 L (19-67) U/L Total Protein 3.6 L (6.2-8.2) gm/dL Albumin 1.3 L (3.4-5.0) gm/dl - Exam Constitutional: Present: Alert, Oriented x3, Cooperative, Well developed, Well nourished, No distress ENT Exam: Present: normal ENT inspection, hearing grossly normal, pharynx normal, TMs normal Neck: Present: non-tender, full range of motion Breasts: Present: Exam deferred Respiratory: Present: chest non-tender, lungs clear, normal breath sounds, no respiratory distress, no accessory muscle use Cardiovascular/Chest: Present: normal peripheral pulses, regular rate, rhythm, no chest tenderness, no edema, no gallop, no JVD, no murmur, no rub Abdomen: Present: Normal bowel sounds, tender /Rectal: Present: Exam deferred Extremity: Present: normal range of motion, non-tender, normal inspection, no pedal edema, no calf tenderness, normal capillary refill Skin Exam: Present: normal color, warm/dry, no cyanosis Lymphatic: Present: no adenopathy 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 Increase potassium to 40 mEq twice daily 2. Recheck morning lab 3. Continue levofloxacin and metronidazole as the diarrhea has improved on these medicines. 4. Anticipate discharge tomorrow. 5. Dr. Waldrop to assume management. - Problems/Diagnosis (1) C. difficile colitis Problem: Acute (2) Colitis, infectious Problem: Acute (3) Hypokalemia due to excessive gastrointestinal loss of potassium Problem: Acute (4) Schizophrenia Problem: Chronic Qualifiers: Schizophrenia type: unspecified Qualified Code(s): F20.9 - Schizophrenia, unspecified
[2020-09-22] MEDS: POTASSIUM CHLORIDE 10 MEQ TABLET.SA PO SCH (17:33)
[2020-09-22] MEDS: DOXEPIN HCL 10 MG CAPSULE PO SCH (20:22)
[2020-09-23] MEDS: metroNIDAZOLE 500 MG TABLET PO SCH ×3 (02:29→18:35)
[2020-09-23 06:31] LABS: Hematocrit 34.7 % (42.0-52.0); Hemoglobin 11.6 gm/dL (13.5-18.0); Mean Cell Volume 88.5 fl (78-100); Mean Corpuscular Hemoglobin 29.6 pg (27-31); Mean Corpuscular Hgb Conc 33.4 g/dl (32-36); Platelet Count 339 K/mm3 (150-450); Red Blood Count 3.92 M/mm3 (4.7-6.0); Red Cell Distribution Width 14.1 % (11.5-14.0); White Blood Count 7.4 K/mm3 (4.0-10.5)
[2020-09-23 06:36] LABS: Total Cells Counted 100
[2020-09-23] MEDS: PANTOPRAZOLE SODIUM 40 MG TABLET.EC PO SCH (06:45)
[2020-09-23 06:48] LABS: Band 2 % (0-2.0); Eosinophil 6 % (0-3); Lymphocyte 19 % (20-51); Monocyte 8 % (0-9); Neutrophil 65 % (42-75); Neutrophil # 4.8 K/mm3 (1.3-6.0)
[2020-09-23 06:49] LABS: Albumin * 1.3 gm/dl (3.4-5.0); Anion Gap 9.9 mmol/L (6.8-13.8); BUN/Creatinine Ratio 4.2 (9.0-21.6); Bilirubin, Total 0.2 mg/dL (0.0-1.1); Ca. Corrected For Albumin 8.7 mg/dL (8.4-10.2); Calcium * 6.9 mg/dL (7.9-10.9); Carbon Dioxide 25.7 mmol/L (24-32.6); Platelet Estimate Normal (NORMAL); Potassium 2.6 mmol/L (3.4-4.6); RBC Morphology Normal (NORMAL); Total Protein 3.7 gm/dL (6.2-8.2)
[2020-09-23] MEDS: POTASSIUM CHLORIDE 10 MEQ TABLET.SA PO SCH (08:32)
[2020-09-23] MEDS: METOPROLOL SUCCINATE 50 MG TABLET.SA PO SCH (08:33)
[2020-09-23] MEDS: LACTOBACILLUS ACIDOPHILUS 1 EACH CAPSULE PO SCH ×2 (08:33→21:18)
[2020-09-23] MEDS: amLODIPine BESYLATE 5 MG TABLET PO SCH (08:34)
[2020-09-23] MEDS: LISINOPRIL 40 MG TABLET PO SCH (08:34)
[2020-09-23] MEDS: FOLIC ACID 1 MG TABLET PO SCH (08:34)
[2020-09-23] MEDS: THIAMINE HCL 100 MG TABLET PO SCH (08:35)
[2020-09-23] MEDS: VANCOMYCIN HCL 50 MG/ML BTL PO SCH ×3 (10:34→23:01)
[2020-09-23] MEDS: POTASSIUM CHLORIDE 20 MEQ TABLET.SA PO SCH ×2 (13:41→16:45)
--- NOTE | 2020-09-23 16:42 | PN ---
Subjective - Date and Time Seen Date: 09/23/20 Time: 16:35 Subjective Narrative: Patient started feel better. No longer have abdominal pain. Still having roughly 2 loose stools a day. White count significantly improved. Stopped Levaquin and started him on oral vancomycin today. Otherwise vital signs are stable. He still hypokalemic at 2.6 despite replenishing. Objective - Review of Systems Generalized/Overall Review: Denies: Weakness, Chills, Fever EENTM: Reports: No Symptoms Reported Respiratory: Denies: Cough, Shortness of Breath Cardiac: Reports: No Symptoms Reported Abdominal: Reports: Diarrhea. Denies: Nausea, Vomiting, Abdominal Pain Genitourinary Symptoms: Reports: No Symptoms Reported Musculoskeletal Complaints: Reports: No Symptoms Reported Neurological: Reports: No Symptoms Reported Skin: Reports: No Symptoms Reported - Vitals Vitals: Last Vital Signs Temp 36.9 C 09/23/20 14:26 Pulse 87 09/23/20 15:39 Resp 20 09/23/20 14:26 BP 115/79 09/23/20 14:26 Pulse Ox 97 09/23/20 14:26 - Abnormal Lab Findings Abnormal Lab Findings: Abnormal Lab Results 09/23/20 09/23/20 Range/Units 06:30 06:30 RBC 3.92 L (4.7-6.0) M/mm3 Hgb 11.6 L (13.5-18.0) gm/dL Hct 34.7 L (42.0-52.0) % RDW 14.1 H (11.5-14.0) % Lymphocytes % (Manual) 19 L (20-51) % Eosinophils % (Manual) 6 H (0-3) % Lymphocytes # (Manual) 1.4 L (1.5-3.5) k/mm3 Potassium 2.6 L (3.4-4.6) mmol/L Chloride 107 H (97-106) mmol/L BUN 3 L (6-23) mg/dL BUN/Creatinine Ratio 4.2 L (9.0-21.6) Random Glucose 111 H (70-110) mg/dL Calcium 6.9 L (7.9-10.9) mg/dL ALT 12 L (19-67) U/L Alkaline Phosphatase 46 L (50-170) U/L Total Protein 3.7 L (6.2-8.2) gm/dL Albumin 1.3 L (3.4-5.0) gm/dl - Exam Constitutional: Present: Alert, Oriented x3, Cooperative, No distress Neck: Present: non-tender, supple Respiratory: Present: lungs clear, normal breath sounds Cardiovascular/Chest: Present: regular rate, rhythm, no murmur Abdomen: Present: soft, nontender, nondistended, hypoactive Skin Exam: Present: normal color, warm/dry Eye contact: Present: cooperative, good eye contact Thoughts: Present: normal thought pattern, normal mood /affect Assessment/Plan Plan Narrative: Patient with C. difficile diarrhea, improving. We will stop Levaquin today and start him on oral vancomycin. Continue Flagyl. Patient still hypokalemic at 2.6. Potassium supplementation adjusted. Recheck BMP in the morning. If improved will likely send home tomorrow on oral antibiotics. Otherwise patient feels well and has no concerns. Nurse to call with any questions. - Problems/Diagnosis (1) Hypokalemia due to excessive gastrointestinal loss of potassium Problem: Acute (2) Chronic diarrhea Problem: Acute (3) C. difficile colitis Problem: Acute
[2020-09-23] MEDS: DOXEPIN HCL 10 MG CAPSULE PO SCH (21:18)
[2020-09-23] MEDS ORDERED: traZODone HCL 50 MG TABLET PO PRN (23:11)
[2020-09-24] MEDS: metroNIDAZOLE 500 MG TABLET PO SCH ×3 (02:25→18:34)
[2020-09-24] MEDS: VANCOMYCIN HCL 50 MG/ML BTL PO SCH ×4 (04:27→22:29)
[2020-09-24] MEDS: PANTOPRAZOLE SODIUM 40 MG TABLET.EC PO SCH (06:30)
[2020-09-24 08:32] LABS: Anion Gap 10.4 mmol/L (6.8-13.8); BUN/Creatinine Ratio 4.9 (9.0-21.6); Calcium * 7.2 mg/dL (7.9-10.9); Carbon Dioxide 25.4 mmol/L (24-32.6); Estimated Creat Clear 104.2; Potassium 2.8 mmol/L (3.4-4.6)
[2020-09-24] MEDS: POTASSIUM CHLORIDE 20 MEQ TABLET.SA PO SCH ×3 (09:01→17:02)
[2020-09-24] MEDS: amLODIPine BESYLATE 5 MG TABLET PO SCH (09:01)
[2020-09-24] MEDS: LACTOBACILLUS ACIDOPHILUS 1 EACH CAPSULE PO SCH ×2 (09:02→20:52)
[2020-09-24] MEDS: THIAMINE HCL 100 MG TABLET PO SCH (09:02)
[2020-09-24] MEDS: METOPROLOL SUCCINATE 50 MG TABLET.SA PO SCH (09:02)
[2020-09-24] MEDS: FOLIC ACID 1 MG TABLET PO SCH (09:02)
[2020-09-24] MEDS: LISINOPRIL 40 MG TABLET PO SCH (09:02)
--- NOTE | 2020-09-24 17:53 | PN ---
Subjective - Date and Time Seen Date: 09/24/20 Time: 17:48 Subjective Narrative: Pleasant dividual today, no concerns at this time. States his stools have decreased definitely with last 2 days. Only had 1-2 bowel movements yesterday. Denies abdominal pain, fever, nausea or vomiting. Still with diarrhea. Vital signs are stable and is been afebrile. Potassium still low at 2.8 though this is improved from the day before. Objective - Review of Systems Generalized/Overall Review: Denies: Weakness, Fever EENTM: Reports: No Symptoms Reported Respiratory: Denies: Cough, Shortness of Breath Cardiac: Denies: Chest Pain, Edema, Palpitations Abdominal: Reports: Diarrhea. Denies: Nausea, Vomiting, Abdominal Pain Genitourinary Symptoms: Reports: No Symptoms Reported - Vitals Vitals: Last Vital Signs Temp 36.5 C 09/24/20 13:00 Pulse 90 09/24/20 14:00 Resp 16 09/24/20 13:00 BP 140/89 H 09/24/20 13:00 Pulse Ox 98 09/24/20 13:00 - Abnormal Lab Findings Abnormal Lab Findings: Abnormal Lab Results 09/24/20 Range/Units 08:02 Potassium 2.8 L (3.4-4.6) mmol/L Chloride 107 H (97-106) mmol/L BUN 4 L (6-23) mg/dL BUN/Creatinine Ratio 4.9 L (9.0-21.6) Random Glucose 143 H (70-110) mg/dL Calcium 7.2 L (7.9-10.9) mg/dL - Exam Constitutional: Present: Alert, Oriented x3, Cooperative, Well developed ENT Exam: Present: hearing grossly normal Neck: Present: non-tender, supple Respiratory: Present: lungs clear, normal breath sounds Cardiovascular/Chest: Present: regular rate, rhythm, no murmur Abdomen: Present: soft, nontender, nondistended, other - Hyperactive Extremity: Present: non-tender. Absent: lower extremity edema, leg pain Skin Exam: Present: normal color, warm/dry Appearance: Present: appropriate appearance, appropriate insight Eye contact: Present: cooperative, good eye contact Thoughts: Present: normal thought pattern, normal mood /affect Assessment/Plan - Problems/Diagnosis (1) Hypokalemia due to excessive gastrointestinal loss of potassium Problem: Acute Narrative: Improved with adjustment. Continue current treatment plan, repeat BMP in the morning. (2) C. difficile colitis Problem: Acute Narrative: Significantly improved since arrival. Possibly septic upon admission but not documented anywhere and patient as I seen him as looked appropriate. Patient did have fairly high white count and an elevated lactic acid as well as tachycardia on admission but again this is resolved. No signs of endorgan damage. White count now normal. We will continue oral Flagyl and vancomycin. Repeat CBC in the morning. (3) Chronic diarrhea Problem: Acute Narrative: Improving, see above (4) Schizophrenia Problem: Chronic Qualifiers: Schizophrenia type: unspecified Qualified Code(s): F20.9 - Schizophrenia, unspecified
[2020-09-24] MEDS: DOXEPIN HCL 10 MG CAPSULE PO SCH (20:51)
[2020-09-25] MEDS: metroNIDAZOLE 500 MG TABLET PO SCH ×2 (02:33→10:39)
[2020-09-25] MEDS: VANCOMYCIN HCL 50 MG/ML BTL PO SCH ×2 (04:45→10:39)
[2020-09-25] MEDS: PANTOPRAZOLE SODIUM 40 MG TABLET.EC PO SCH (06:49)
[2020-09-25 07:44] LABS: Hematocrit 38.4 % (42.0-52.0); Hemoglobin 12.8 gm/dL (13.5-18.0); Mean Cell Volume 90.6 fl (78-100); Mean Corpuscular Hemoglobin 30.2 pg (27-31); Mean Corpuscular Hgb Conc 33.3 g/dl (32-36); Mean Platelet Volume 7.8 fl (8-11.3); Platelet Count 461 K/mm3 (150-450); Red Blood Count 4.24 M/mm3 (4.7-6.0); Red Cell Distribution Width 14.3 % (11.5-14.0); White Blood Count 10.9 K/mm3 (4.0-10.5)
[2020-09-25 07:46] LABS: Anion Gap 11.1 mmol/L (6.8-13.8); BUN/Creatinine Ratio 3.8 (9.0-21.6); Calcium * 7.3 mg/dL (7.9-10.9); Carbon Dioxide 25.2 mmol/L (24-32.6); Estimated Creat Clear 109.5; Potassium 3.3 mmol/L (3.4-4.6); Total Cells Counted 100
[2020-09-25 07:59] LABS: Eosinophil 2 % (0-3); Lymphocyte 18 % (20-51); Monocyte 5 % (0-9); Neutrophil 75 % (42-75); Neutrophil # 8.2 K/mm3 (1.3-6.0); Platelet Estimate Normal (NORMAL); RBC Morphology Normal (NORMAL)
[2020-09-25] MEDS: LACTOBACILLUS ACIDOPHILUS 1 EACH CAPSULE PO SCH (09:12)
[2020-09-25] MEDS: POTASSIUM CHLORIDE 20 MEQ TABLET.SA PO SCH ×2 (09:12→13:58)
[2020-09-25] MEDS: FOLIC ACID 1 MG TABLET PO SCH (09:12)
[2020-09-25] MEDS: THIAMINE HCL 100 MG TABLET PO SCH (09:13)
[2020-09-25] MEDS: amLODIPine BESYLATE 5 MG TABLET PO SCH (09:13)
[2020-09-25] MEDS: LISINOPRIL 40 MG TABLET PO SCH (09:13)
[2020-09-25] MEDS: METOPROLOL SUCCINATE 50 MG TABLET.SA PO SCH (09:13)
[2020-09-25] MEDS ORDERED: PETROLATUM,WHITE 49 APPL JAR TP PRN (11:11)
--- NOTE | 2020-09-25 11:25 | DS ---
(1) Hypokalemia due to excessive gastrointestinal loss of potassium Problem: Acute (2) C. difficile colitis Problem: Acute (3) Chronic diarrhea Problem: Acute (4) Schizophrenia Problem: Chronic Qualifiers: Schizophrenia type: unspecified Qualified Code(s): F20.9 - Schizophrenia, unspecified Date of Discharge:: 09/25/20 Hospital Course: 54-year-old male with history of schizophrenia, hypertension, alcohol abuse presented to the hospital with intractable diarrhea that started on the of this month. He was found to have C. difficile diarrhea and started on Flagyl and oral vancomycin. Initial white count was 34.9 which trended down to 10.9 on day of discharge. Left shift resolved. No other abnormality seen on his lab work while here. his vital signs have been stable and he has been afebrile. Patient has had multiple incontinent stools each day while here but appears to be slowing on today, day of discharge. Patient stayed in the hospital for this long due to his hypokalemia. Patient's potassium was 2.6 upon admission, 3.3 upon discharge. Patient will be discharged home on oral vancomycin, Flagyl, and 40 mEq potassium twice daily. Patient will need to back to the hospital in the next 3 to 5 days for repeat potassium level. No other changes to his chronic medicines. Patient to apply Vaseline as a barrier to his inner thighs and around his rectum due to sensitivity from his chronic diarrhea. Patient discharged home in stable condition. Procedures Performed: none Results and Findings: Pending Mircobiology Results 09/20/20 16:50 Blood Blood Culture - Preliminary NO GROWTH AFTER 48 HOURS 09/20/20 16:26 Blood Blood Culture - Preliminary NO GROWTH AFTER 48 HOURS Lab Pending Results 09/20/20 16:34: WBC 34.9 H, RBC 4.99, Hgb 15.0, Hct 44.6, MCV 89.4, MCH 30.1, MCHC 33.6, RDW 14.2 H, Plt Count 496 H, MPV 8.4, Neutrophils % (Manual) 78 H, Band Neuts % (Manual) 9 H, Lymphocytes % (Manual) 1 L, Monocytes % (Manual) 7, Neutrophils # (Manual) 27.2 H, Lymphocytes # (Manual) 0.3 L, Monocytes # (Manual) 2.4 H, Atypic/Reactive Lymphs 5 H, Platelet Estimate Increased H 09/20/20 16:34: Sodium 133, Plasma Sodium 135, Potassium 2.6 L D, Chloride 96 L, Carbon Dioxide 28.1, Anion Gap 11.5, BUN 10, Creatinine 1.31, Est GFR (Non-Af Amer) 61, BUN/Creatinine Ratio 7.6 L, Random Glucose 198 H, Calcium 8.0, Calcium Adj for Albumin 9.3, Total Bilirubin 0.7, AST 12, ALT 16 L, Alkaline Phosphatase 76, Troponin I Less than 0.017, B-Natriuretic Peptide 193 H, Total Protein 5.1 L, Albumin 2.0 L, Lipase 27 L 09/20/20 16:34: Lactic Acid, Venous 3.4 H* 09/20/20 17:54: Amylase 7 L, Lipase 27 L 09/20/20 18:04: SARS-CoV-2 (PCR) Not detected 09/20/20 19:45: Lactic Acid, Venous 1.9 09/21/20 03:13: Urine Color Dark yellow, Urine Appearance Clear, Urine pH 6.5, Ur Specific [place] 1.015, Urine Protein Negative, Urine Glucose (UA) Negative, Urine Ketones 5, Urine Blood Negative, Urine Nitrate Negative, Urine Bilirubin Negative, Urine Urobilinogen Normal, Ur Leukocyte Esterase Negative, Urine RBC None seen, Urine WBC 0-5, Ur Epithelial Cells None seen, Urine Bacteria None seen, Urine Culture Comments No culture indicated 09/21/20 03:13: Urine Opiates Screen Positive H, Barbiturate Screen Negative, Ur Phencyclidine Scrn Negative, Urine Amphetamine Negative, U Benzodiazepines Scrn Negative, Urine Cocaine Screen Negative, Urine Marijuana (THC) Negative 09/21/20 05:25: Fluid Lymphocytes 10 L, Stool White Cell Res 4 Few, Stool Neutrophil # 90 H, Stool Leukocytes, Qual Many H, Yeast (Wet Prep) None seen 09/21/20 05:25: Stl C.difficile Tox A&B Positive H 09/21/20 06:40: WBC 28.0 H, RBC 4.03 L, Hgb 12.1 L, Hct 35.8 L, MCV 88.8, MCH 30.0, MCHC 33.8, RDW 13.8, Plt Count 352, MPV 8.6, Neutrophils % (Manual) 83 H, Band Neuts % (Manual) 7 H, Lymphocytes % (Manual) 5 L, Monocytes % (Manual) 2, Neutrophils # (Manual) 23.2 H, Lymphocytes # (Manual) 1.4 L, Monocytes # (M anual) 0.6, Atypic/Reactive Lymphs 3 H, Platelet Estimate Normal, RBC Morphology Normal 09/21/20 06:40: ESR 8 09/21/20 06:40: Sodium 132, Plasma Sodium 132, Potassium 2.7 L, Chloride 100, Carbon Dioxide 24.1, Anion Gap 10.6, BUN 8, Creatinine 0.98, Est GFR (Non-Af Amer) 85 D, BUN/Creatinine Ratio 8.2 L, Random Glucose 112 H D, Calcium 7.2 L, Calcium Adj for Albumin 8.8, Total Bilirubin 0.5, AST 13, ALT 15 L, Alkaline Phosphatase 61, C-Reactive Prot, Quant 23.3 H, Total Protein 3.8 L, Albumin 1.6 L 09/22/20 10:46: WBC 13.6 H D, RBC 3.79 L, Hgb 11.5 L, Hct 33.7 L, MCV 88.9, MCH 30.3, MCHC 34.1, RDW 14.2 H, Plt Count 392, MPV 8.1, Neutrophils % (Manual) 80 H, Band Neuts % (Manual) 2, Lymphocytes % (Manual) 10 L, Monocytes % (Manual) 4, Eosinophils % (Manual) 4 H, Neutrophils # (Manual) 10.9 H, Lymphocytes # (Manual) 1.4 L, Monocytes # (Manual) 0.5, Eosinophils # (Manual) 0.5, Platelet Estimate Normal, RBC Morphology Normal 09/22/20 10:46: Sodium 138, Plasma Sodium 138, Potassium 2.6 L, Chloride 107 H, Carbon Dioxide 23.5 L, Anion Gap 10.1, BUN 4 L, Creatinine 0.75, Est GFR (Non-Af Amer) 116 D, BUN/Creatinine Ratio 5.3 L, Random Glucose 107, Calcium 7.1 L, Calcium Adj for Albumin 8.9, Total Bilirubin 0.2, AST 12, ALT 11 L, Alkaline Phosphatase 54, Total Protein 3.6 L, Albumin 1.3 L 09/23/20 06:30: WBC 7.4 D, RBC 3.92 L, Hgb 11.6 L, Hct 34.7 L, MCV 88.5, MCH 29.6, MCHC 33.4, RDW 14.1 H, Plt Count 339, MPV 8.0, Neutrophils % (Manual) 65, Band Neuts % (Manual) 2, Lymphocytes % (Manual) 19 L, Monocytes % (Manual) 8, Eosinophils % (Manual) 6 H, Neutrophils # (Manual) 4.8, Lymphocytes # (Manual) 1.4 L, Monocytes # (Manual) 0.6, Eosinophils # (Manual) 0.4, Platelet Estimate Normal, RBC Morphology Normal 09/23/20 06:30: Sodium 140, Plasma Sodium 140, Potassium 2.6 L, Chloride 107 H, Carbon Dioxide 25.7, Anion Gap 9.9, BUN 3 L, Creatinine 0.72, Est GFR (Non-Af Amer) 121, BUN/Creatinine Ratio 4.2 L, Random Glucose 111 H, Calcium 6.9 L, Calcium Adj for Albumin 8.7, Total Bilirubin 0.2, AST 11, ALT 12 L, Alkaline Phosphatase 46 L, Total Protein 3.7 L, Albumin 1.3 L 09/24/20 08:02: Sodium 140, Plasma Sodium 141, Potassium 2.8 L, Chloride 107 H, Carbon Dioxide 25.4, Anion Gap 10.4, BUN 4 L, Creatinine 0.82, Est GFR (Non-Af Amer) 104, BUN/Creatinine Ratio 4.9 L, Random Glucose 143 H, Calcium 7.2 L 09/25/20 07:36: WBC 10.9 H D, RBC 4.24 L, Hgb 12.8 L, Hct 38.4 L, MCV 90.6, MCH 30.2, MCHC 33.3, RDW 14.3 H, Plt Count 461 H, MPV 7.8 L, Neutrophils % (Manual) 75, Lymphocytes % (Manual) 18 L, Monocytes % (Manual) 5, Eosinophils % (Manual) 2, Neutrophils # (Manual) 8.2 H, Lymphocytes # (Manual) 2.0, Monocytes # (Manual) 0.5, Eosinophils # (Manual) 0.2, Platelet Estimate Normal, RBC Morphology Normal 09/25/20 07:36: Sodium 141, Plasma Sodium 141, Potassium 3.3 L, Chloride 108 H, Carbon Dioxide 25.2, Anion Gap 11.1, BUN 3 L, Creatinine 0.78, Est GFR (Non-Af Amer) 111, BUN/Creatinine Ratio 3.8 L, Random Glucose 113 H, Calcium 7.3 L Discharge Location: Home Disposition: Home self-care Condition: Stable Discharge Activity: Activity as tolerated Discharge Diet: General/regular food Problem Oriented Discharge Instructions to Patient/Family: Clostridioides Difficile Infection, [id number] Additional Patient Instructions (free text): Pt has follow up scheduled already with a Dr. [facility] on 10/02/2020 in [place], [place]. Please fax discharge instructions, summary to [phone]. Prescriptions (Any new or edited meds): metroNIDAZOLE [Flagyl] 500 mg PO Q8H #15 tab Transmission Status: Pending to [id number] Potassium Chloride [K-Dur] 40 meq PO BIDWM #20 tablet.sa Transmission Status: Pending to [id number] Vancomycin HCl 125 mg PO QID #20 cap Transmission Status: Pending to [id number] Complete Home Medications List: Complete Home Medication List: Acetaminophen [Tylenol] 1,000 mg PO PRN PRN 07/29/20 Acetaminophen [Tylenol] 1,000 mg PO Q6H PRN 09/20/20 Amlodipine Besylate 2.5 mg PO DAILY 09/20/20 Cholecalciferol [Vitamin D] 2,000 unit PO DAILY 09/20/20 Doxepin HCl [Sinequan] 10 mg PO HS 09/20/20 Lactobacillus rhamnosus GG 10 billion cell capsule 1 cap PO BID 09/20/20 Lisinopril [Zestril] 40 mg PO DAILY 09/20/20 Metoprolol Succinate 50 mg PO DAILY 09/20/20 Lqhaz-Ertqrzc-Nlfmxiun Tablet 1 cap PO DAILY 09/20/20 folic acid 1 mg tablet 1 mg PO DAILY 09/20/20 pantoprazole 40 mg tablet,delayed release 40 mg PO QAM 09/20/20 thiamine HCl (vitamin B1) 100 mg tablet 100 mg PO DAILY 09/20/20 Petrolatum,White [Vaseline White Petroleum] 1 appl TP PRN PRN jar 09/25/20 Potassium Chloride [K-Dur] 40 meq PO BIDWM #20 tablet.sa 09/25/20 Vancomycin HCl 125 mg PO QID #20 cap 09/25/20 metroNIDAZOLE [Flagyl] 500 mg PO Q8H #15 tab 09/25/20 Forms: Patient Portal Registration
[2020-09-25 15:37] VITALS: BP 136/92
== END 2020-09-25 16:23 | disposition home or self-care (01) | DRG 872 ==
LOC: ER 14:18 → MS 14:18 → OBSVTOIN 19:18 → MS 20:15
PROVIDERS: ADMIT Family Medicine; ATTEND Family Medicine
DX: E87.6 Hypokalemia; A04.72 Enterocolitis due to Clostridium difficile, not specified as recurrent; A41.9 Sepsis, unspecified organism; F20.9 Schizophrenia, unspecified